=== PATIENT | female | born 1975 | race Caucasian/White ===

== ENCOUNTER 2020-04-13 10:25 | Outpatient (REF) | payer OTHER, SELFPAY | END 2020-04-13 10:26 | disposition home or self-care (01) | LOC: HO.LAB 10:25 | PROVIDERS: Visit Provider Internal Medicine | DX: Z20.822 Contact with and (suspected) exposure to COVID-19 (principal) | CPT/HCPCS: 36415; C9803; U0003; U0005 ==

== ENCOUNTER 2021-02-15 09:51 | Outpatient (REF) | payer OTHER, SELFPAY ==
[2021-02-15 10:20] LABS: COVID-19 Test Positive (Negative)
== END 2021-02-15 09:52 | disposition home or self-care (01) ==
LOC: HO.LAB 09:51
PROVIDERS: Visit Provider Internal Medicine
DX: Z20.822 Contact with and (suspected) exposure to COVID-19 (principal)
CPT/HCPCS: 36415; 87635; C9803